=== PATIENT | male | born 1995 | race Hispanic/Latino ===

== ENCOUNTER 2019-11-11 21:47 | Emergency (ER) | payer SELFPAY ==
[2019-11-11] MEDS ORDERED: Lidocaine 2% Viscous Solution 100 ML Bottle PO ONE (22:25)
[2019-11-11] MEDS ORDERED: Lidocaine 2% Viscous Solution 15 ML Cup PO ONE (22:30)
--- NOTE | 2019-11-11 22:41 | EDM.PDOC ---
ED HPI GENERAL MEDICAL PROBLEM - General Chief Complaint: Allergic Reaction Stated Complaint: ALLERGIC REACTION Time Seen by Provider: 11/11/19 22:20 Source of Information: Reports: Patient - History of Present Illness INITIAL COMMENTS - FREE TEXT/NARRATIVE: The patient is a 24-year-old male who presents to the ER for a foreign body sensation in his throat. He states that he was eating ribs and chicken at [employer] and he started feeling like there was an itch or irritation on the left side in the back of his throat. No difficulty swallowing but it hurts to swallow. He denies any other acute complaints. throat Pain Score (Numeric/FACES): 2 - Related Data Allergies Allergy/AdvReac Type Severity Reaction Status Date / Time Penicillins Allergy Swollen Verified 11/11/19 21:59 Tongue Home Meds: Home Meds . [No Known Home Meds] 11/11/19 [History] Past Medical History HEENT History: Reports: None Cardiovascular History: Reports: None Respiratory History: Reports: None Gastrointestinal History: Reports: None Genitourinary History: Reports: None Musculoskeletal History: Reports: None Neurological History: Reports: None Psychiatric History: Reports: None Endocrine/Metabolic History: Reports: None Insulin Pump Model and Senior Online Marketing Manager: N/A Hematologic History: Reports: None Immunologic History: Reports: None Oncologic (Cancer) History: Reports: None Dermatologic History: Reports: None - Infectious Disease History Infectious Disease History: Reports: None - Past Surgical History Head Surgeries/Procedures: Reports: None HEENT Surgical History: Reports: Oral Surgery Social & Family History - Family History Family Medical History: Noncontributory - Tobacco Use Smoking Status *Q: Never Smoker - Caffeine Use Caffeine Use: Reports: Soda - Recreational Drug Use Recreational Drug Use: No ED ROS ALLERGIC REACTION - Review of Systems Review Of Systems: See Below (Positive for throat foreign body sensation, negative for difficulty swallowing, negative for difficulty breathing, negative for fevers, negative for coughing, all other Positives and pertinent negatives as per HPI. All other pertinent systems were reviewed and are negative) ED EXAM GENERAL NO PERIP PULSE - Physical Exam Exam: See Below Text/Narrative:: Constitutional: Morbidly obese, no acute distress, Non-toxic appearance. HEENT: Normocephalic, Atraumatic, PERRL, EOMI, oropharynx widely patent, tongue and uvula are midline, gingiva is unremarkable, no retropharyngeal or peritonsillar abscess, no oropharyngeal exudates or ulcerations or vesicles, patient is handling secretions without difficulty Neck: Normal range of motion, No stridor, trachea midline, no masses or lymphadenopathy Respiratory: No respiratory distress, No tachypnea, no stridor Cardiovascular: Deferred Gastrointestinal: Deferred Genital / Urinary: Deferred Musculoskeletal: All four extremities present and atraumatic Back: FROM Integument: Warm, Dry, Color is ethnicity appropriate, No rash. Neuro: Alert, Awake, No focal deficits noted Psych: Affect, Judgement, mood normal Course - Vital Signs Text/Narrative:: History and exam are not consistent with any acute emergencies such as bacterial tracheitis, foreign body aspiration, epiglottitis, uvulitis, angioedema, anaphylaxis, etc. Talk to the patient in detail about the most likely diagnoses are that he is either coming down with some type of viral illness in the posterior oropharynx that I cannot see, or the patient probably swallowed a very small piece of bone which is either lodged in his vallecula and/or he might have a mucosal abrasion. Viscous lidocaine was offered for some symptomatic treatment but he does not want any. At this time he is stable for discharge and outpatient follow-up if symptoms do not improve the next few days. Last Recorded V/S: Last Vital Signs Temp 37.3 C 11/11/19 22:38 Pulse 102 H 11/11/19 22:38 Resp 16 11/11/19 22:38 BP 154/87 H 11/11/19 22:38 Pulse Ox 96 11/11/19 22:38 - Orders/Labs/Meds Meds: Medications Discontinued Medications Generic Name Dose Route Start Last Admin Trade Name Tania PRN Reason Stop Dose Admin Lidocaine HCl 20 ml 11/11/19 22:25 11/11/19 22:38 Xylocaine 2% Viscous PO 11/11/19 22:26 Not Given ONETIME ONE Lidocaine HCl 15 ml 11/11/19 22:30 11/11/19 22:37 Xylocaine 2% Viscous PO 11/11/19 22:31 Not Given ONETIME ONE Departure - Departure Time of Disposition: 22:41 Disposition: Home, Self-Care 01 Condition: Good Clinical Impression: Odynophagia - Discharge Information *PRESCRIPTION DRUG MONITORING PROGRAM REVIEWED*: Not Applicable *COPY OF PRESCRIPTION DRUG MONITORING REPORT IN PATIENT VIGNESH: Not Applicable Referrals: PCP,None [Primary Care Provider] - Additional Instructions: Drink plenty of fluids and eat small amounts of food as tolerated. If symptoms do not improve in the next few days and follow-up with your primary care physician for referral to an ENT physician. Sepsis Event Note - Evaluation Sepsis Screening Result: No Definite Risk - Focused Exam Vital Signs: Vital Signs Temp Pulse Resp BP Pulse Ox 11/11/19 22:38 37.3 C 102 H 16 154/87 H 96 11/11/19 21:55 36.7 C 104 H 18 160/74 H 98 Date Exam was Performed: 11/11/19 Time Exam was Performed: 22:44
== END 2019-11-11 22:45 | disposition home or self-care (01) ==
LOC: MW.ED 21:47
DX: R13.10 Dysphagia, unspecified (principal); Z98.890 Other specified postprocedural states; Z88.0 Allergy status to penicillin
CPT/HCPCS: 99283; A9270; 99282

== ENCOUNTER 2020-01-17 07:06 | Emergency (ER) | payer BC, OTHER ==
--- NOTE | 2020-01-17 07:28 | EDM.PDOC ---
ED HPI GENERAL MEDICAL PROBLEM - General Chief Complaint: General Stated Complaint: FEVER, COUGH Time Seen by Provider: 01/17/20 07:20 Source of Information: Reports: Patient History Limitations: Reports: No Limitations - History of Present Illness INITIAL COMMENTS - FREE TEXT/NARRATIVE: 24-year-old male presents the emergency room with a chief complaint of right lower quadrant pain, cough and fever for the past 4 days, unable to keep anything down for 3 days patient states he can drink but not eat anything and continues to have fever and cough. Patient has no recent travel has not been exposed to anyone with COVID 19 and has no previous surgeries. Duration: Day(s): (4), Getting Worse Location: Reports: Chest, Abdomen Quality: Reports: Ache Severity: Moderate Improves with: Reports: None Worsens with: Reports: None Associated Symptoms: Reports: cough w sputum, Fever/Chills, Nausea/Vomiting, Weakness Upper Chest Pain Score (Numeric/FACES): 5 - Related Data Allergies Allergy/AdvReac Type Severity Reaction Status Date / Time Penicillins Allergy Swollen Verified 01/17/20 07:22 Tongue Home Meds: Home Meds Ondansetron [Zofran ODT] 4 mg PO Q6H PRN #20 tab.dis 01/17/20 [Rx] Past Medical History HEENT History: Reports: None Cardiovascular History: Reports: None Respiratory History: Reports: None Gastrointestinal History: Reports: None Genitourinary History: Reports: None Musculoskeletal History: Reports: None Neurological History: Reports: None Psychiatric History: Reports: None Endocrine/Metabolic History: Reports: None Insulin Pump Model and Clothing Man: N/A Hematologic History: Reports: None Immunologic History: Reports: None Oncologic (Cancer) History: Reports: None Dermatologic History: Reports: None - Infectious Disease History Infectious Disease History: Reports: None - Past Surgical History Head Surgeries/Procedures: Reports: None HEENT Surgical History: Reports: Oral Surgery Social & Family History - Family History Family Medical History: Noncontributory - Caffeine Use Caffeine Use: Reports: Soda ED ROS GENERAL - Review of Systems Review Of Systems: See Below Constitutional: Reports: Fever, Chills, Weakness HEENT: Reports: No Symptoms Respiratory: Reports: Shortness of Breath, Cough, Sputum Cardiovascular: Reports: No Symptoms Endocrine: Reports: No Symptoms GI/Abdominal: Reports: Abdominal Pain, Nausea : Reports: No Symptoms Musculoskeletal: Reports: No Symptoms Skin: Reports: No Symptoms Neurological: Reports: No Symptoms Psychiatric: Reports: No Symptoms Hematologic/Lymphatic: Reports: No Symptoms Immunologic: Reports: No Symptoms ED EXAM, GENERAL - Physical Exam Exam: See Below Exam Limited By: No Limitations General Appearance: Alert, WD/WN, Moderate Distress Eye Exam: Bilateral Eye: Normal Fundi, Normal Inspection Ears: Normal External Exam, Normal Canal, Hearing Grossly Normal, Normal TMs Ear Exam: Bilateral Ear: Auricle Normal, Canal Normal Nose: Normal Inspection, Normal Mucosa, No Blood Throat/Mouth: Normal Inspection, Normal Lips, Normal Teeth, Normal Gums, Normal Oropharynx, Normal Voice, No Airway Compromise Head: Atraumatic, Normocephalic Neck: Normal Inspection, Supple, Non-Tender Respiratory/Chest: No Respiratory Distress, Lungs Clear, Normal Breath Sounds, No Accessory Muscle Use. No: Chest Non-Tender, Respiratory Distress, Decreased Breath Sounds, Crackles, Rales, Rhonchi Cardiovascular: Normal Peripheral Pulses, Regular Rate, Rhythm, No Edema, No JVD , No Murmur GI/Abdominal: Normal Bowel Sounds, Soft, No Distention, No Abnormal Bruit, Tender (Male) Exam: Deferred Rectal (Males) Exam: Deferred Back Exam: Normal Inspection, Full Range of Motion, CVA Tenderness (L), CVA Tenderness (R), Decreased Range of Motion Extremities: Normal Inspection, Normal Range of Motion, Non-Tender, No Pedal Edema, Normal Capillary Refill Neurological: Alert, Oriented, CN II-XII Intact, Normal Cognition, Normal Gait, Normal Reflexes, No Motor/Sensory Deficits Psychiatric: Normal Affect, Normal Mood Skin Exam: Warm, Dry, Intact, Normal Color, No Rash Lymphatic: No Adenopathy Course - Vital Signs Text/Narrative:: Presents to the emergency room chief complaint of fever cough, right lower abdominal pain. Patient needs a note to go back to work. Employer concerned of possible COVID versus infectious disease. Patient's labs include a negative COVID screening, negative influenza negative strep. Patient's chest x-ray is normal. Patient has a negative abdominal CT scan possible appendicitis or any other abdominal pathology. And patient's chest x-ray is normal. Patient will be discharged from the emergency room. Diagnosis possible viral gastritis. Patient instructed to return to work in 48 hours. Patient instructed to increase fluids no medication given at this time. Last Recorded V/S: Last Vital Signs Temp 97.1 F 01/17/20 07:19 Pulse 78 01/17/20 07:19 Resp 18 01/17/20 07:19 BP 151/98 H 01/17/20 07:19 Pulse Ox 98 01/17/20 07:19 - Orders/Labs/Meds Orders: Active Orders 24 hr Category Date Time Status Isolation [COMM] Routine Oth 01/17/20 07:34 Active Labs: Laboratory Tests 01/17/20 01/17/20 01/17/20 Range/Units 07:30 07:40 07:40 WBC 9.02 (4.0-11.0) K/uL RBC 5.13 (4.50-5.90) M/uL Hgb 14.8 (13.0-17.0) g/dL Hct 45.9 (38.0-50.0) % MCV 89.5 (80.0-98.0) fL MCH 28.8 (27.0-32.0) pg MCHC 32.2 (31.0-37.0) g/dL RDW Std Deviation 41.1 (28.0-62.0) fl RDW Coeff of Marisa 13 (11.0-15.0) % Plt Count 319 (150-400) K/uL MPV 10.80 (7.40-12.00) fL Neut % (Auto) 56.6 (48.0-80.0) % Lymph % (Auto) 32.4 (16.0-40.0) % [place] % (Auto) 6.7 (0.0-15.0) % Eos % (Auto) 4.1 (0.0-7.0) % Baso % (Auto) 0.2 (0.0-1.5) % Neut # (Auto) 5.1 (1.4-5.7) K/uL Lymph # (Auto) 2.9 H (0.6-2.4) K/uL [place] # (Auto) 0.6 (0.0-0.8) K/uL Eos # (Auto) 0.4 (0.0-0.7) K/uL Baso # (Auto) 0.0 (0.0-0.1) K/uL Nucleated RBC % 0.0 /100WBC Nucleated RBCs # 0 K/uL Sodium 138 (136-148) mmol/L Potassium 4.1 (3.5-5.1) mmol/L Chloride 102 (98-107) mmol/L Carbon Dioxide 25.7 (21.0-32.0) mmol/L BUN 12 (7.0-18.0) mg/dL Creatinine 1.0 (0.8-1.3) mg/dL Est Cr Clr Drug Dosing 97.38 mL/min Estimated GFR (MDRD) > 60.0 ml/min Glucose 108 H (74-106) mg/dL Calcium 8.2 L (8.5-10.1) mg/dL Total Bilirubin 0.7 (0.2-1.0) mg/dL AST 29 (15-37) IU/L ALT 53 (14-63) IU/L Alkaline Phosphatase 86 (46-116) U/L Total Protein 7.9 (6.4-8.2) g/dL Albumin 3.8 (3.4-5.0) g/dL Globulin 4.1 H (2.6-4.0) g/dL Albumin/Globulin Ratio 0.9 (0.9-1.6) SARS-CoV-2 RNA (RT-PCR) NEGATIVE (NEGATIVE) Meds: Medications Discontinued Medications Generic Name Dose Route Start Last Admin Trade Name Freq PRN Reason Stop Dose Admin Sodium Chloride 1,000 mls @ 1,000 mls/hr 01/17/20 07:34 01/17/20 07:54 Normal Saline IV 01/17/20 08:33 1,000 mls/hr .Bolus ONE Administration Iopamidol 100 ml 01/17/20 08:55 01/17/20 08:56 Isovue Multipack-370 (76%) IVPUSH 01/17/20 08:56 100 ml ONETIME STA Administration Ondansetron HCl 4 mg 01/17/20 07:35 01/17/20 07:54 Zofran IVPUSH 01/17/20 07:36 4 mg ONETIME ONE Administration Departure - Departure Time of Disposition: 09:23 Disposition: Home, Self-Care 01 Condition: Good Clinical Impression: Viral gastroenteritis - Discharge Information Referrals: PCP,None [Primary Care Provider] - Forms: ED Department Discharge Additional Instructions: I. Take medication for nausea and vomiting. II. Patient can go back to work after 48 hours Follow-up with your primary care physician follow-up. Sepsis Event Note - Focused Exam Vital Signs: Vital Signs Temp Pulse Resp BP Pulse Ox 01/17/20 07:19 97.1 F 78 18 151/98 H 98 Date Exam was Performed: 01/17/20 Time Exam was Performed: 09:21 - My Orders Last 24 Hours: My Active Orders 01/17/20 07:34 Isolation [COMM] Routine - Assessment/Plan Last 24 Hours: My Active Orders 01/17/20 07:34 Isolation [COMM] Routine
[2020-01-17] MEDS ORDERED: Sodium Chloride 0.9% 1,000 ML IV ONE (07:34)
[2020-01-17] MEDS ORDERED: Ondansetron 4 MG/2 ML SDV IVPUSH ONE (07:35)
[2020-01-17 08:17] LABS: BLOOD UREA NITROGEN,BUN 12 mg/dL (7.0-18.0); CARBON DIOXIDE,CO2 25.7 mmol/L (21.0-32.0); CHLORIDE,CL 102 mmol/L (98-107); GLUCOSE RANDOM 108 mg/dL (74-106); POTASSIUM,K 4.1 mmol/L (3.5-5.1); SODIUM,NA 138 mmol/L (136-148)
[2020-01-17] MEDS ORDERED: Iopamidol 755 MG/ML 200 ML Multipack Bottle IVPUSH STA (08:55)
--- NOTE | 2020-01-17 09:12 | CR ---
Chest: Frontal view of the chest was obtained. Comparison: No prior chest imaging is available. Heart size and mediastinum are normal. Lungs are clear with no acute parenchymal change. Bony structures are grossly intact. Impression: 1. Nothing acute is appreciated on frontal chest x-ray. Diagnostic code #1 This report was dictated in MDT
--- NOTE | 2020-01-17 09:15 | CT ---
CT abdomen and pelvis Technique: Multiple axial sections were obtained from above the dome of the diaphragm inferiorly through the pubic symphysis. Intravenous contrast was utilized. No oral contrast has been given. Comparison: No prior abdominal imaging is available. Findings: Visualized lung bases show nothing acute. Fatty infiltration is noted within the liver. Spleen appears within normal limits. Gallbladder contains no calcified gallstones. Adrenal glands show no nodule. Pancreas appears within normal limits. Kidneys show symmetric contrast enhancement without hydronephrosis or mass. Aorta shows no aneurysm. No retroperitoneal adenopathy or mesenteric abnormalities are seen. No pelvic mass or adenopathy is identified. Appendix is seen and is normal in size. No free fluid or inflammatory change is seen. No bowel dilatation is seen. Bone window settings were reviewed which show no acute osseous finding. Impression: 1. Fatty infiltration within the liver. 2. Nothing acute is appreciated on CT study of the abdomen and pelvis. Diagnostic code #2 This report was dictated in MDT
== END 2020-01-17 09:38 | disposition home or self-care (01) ==
LOC: MW.ED 07:06
DX: A08.4 Viral intestinal infection, unspecified (principal); Z88.0 Allergy status to penicillin
CPT/HCPCS: 36415; 71045; 74177; 80053; 85025; 87635; 87804; 96361; 96374; 99284; J2405; J7030; Q9967; 99283; U0002